=== PATIENT | female | born 1935 | race Caucasian/White ===

== ENCOUNTER 2020-08-22 12:59 | Outpatient (CLI) | payer MEDICARE, MEDICAID ==
--- NOTE | 2020-08-22 16:19 | CT ---
CT ABDOMEN AND PELVIS WITH CONTRAST: 08/22/[address] of the abdomen and pelvis was done with IV contrast for evaluation of low abdominal pain. The lung bases are clear except for some minimal areas of scarring. A small hiatal hernia was noted. The liver and spleen contain multiple calcified granulomas. There has been a prior cholecystectomy. T he pancreas and adrenal glands were unremarkable. A small cyst is seen associated with the right kidn ey measuring about 1.8 cm in size. No solid mass or hydronephrosis was seen. The aorta is normal in c aliber. There is a moderate amount of fecal material in the bowel but no overt obstruction. No inflammatory c hanges were seen around bowel, nor was there any wall thickening. Diverticulosis was present, predomi nantly in the left colon, but there was no sign of diverticulitis. CT of the pelvis shows no free air or free fluid. No adnexal masses were seen. Degenerative changes i n the lumbar spine are quite prominent. IMPRESSION: 1. Mild constipation. 2. No signs of inflammatory changes in the abdomen or associated bowel. 3. Small hiatal hernia. POS: HOME
[2020-08-22] MEDS ORDERED: Iopamidol 370 76% 100 ML VIAL ONE (16:28)
== END 2020-08-22 13:00 | disposition home or self-care (01) ==
LOC: BURCT 12:59
PROVIDERS: ATTEND Internal Medicine Gastroenterology
DX: Z01.818 Encounter for other preprocedural examination (principal); R10.30 Lower abdominal pain, unspecified; R13.12 Dysphagia, oropharyngeal phase; K58.9 Irritable bowel syndrome, unspecified; R63.5 Abnormal weight gain; K59.00 Constipation, unspecified; K44.9 Diaphragmatic hernia without obstruction or gangrene
CPT/HCPCS: 36415; 74177; 82565; Q9967

== ENCOUNTER 2020-11-18 12:36 | Emergency (ER) | payer MEDICARE, MEDICAID ==
[2020-11-18] MEDS ORDERED: ALPRAZolam 0.5 MG TAB ONE (13:05)
== END 2020-11-18 13:18 | disposition home or self-care (01) ==
LOC: BURERS 12:36
DX: F41.9 Anxiety disorder, unspecified (principal); I13.0 Hypertensive heart and chronic kidney disease with heart failure and stage 1 through stage 4 chronic kidney disease, or unspecified chronic kidney disease; I50.9 Heart failure, unspecified; N18.31 Chronic kidney disease, stage 3a; J44.9 Chronic obstructive pulmonary disease, unspecified; Z87.891 Personal history of nicotine dependence; Z79.82 Long term (current) use of aspirin; Z79.899 Other long term (current) drug therapy
CPT/HCPCS: 99283

== ENCOUNTER 2020-12-28 01:19 | Emergency (ER) | payer MEDICARE, MEDICAID ==
[2020-12-28 02:15] LABS: #Basophils 0.2 thou/uL (0.0-0.2); #Eosinphils 0.3 thou/uL (0.0-0.7); #Lymphocytes 1.4 thou/uL (1.20-3.40); #Monocytes 0.8 thou/uL (0.11-0.59); #Neutrophils 4.8 thou/uL (1.40-6.50); %Basophils 2.1 % (0.0-1.0); %Eosinophils 3.7 % (0.0-10.0); %Lymphocytes 19.3 % (21.0-51.0); %Monocytes 10.1 % (0.0-10.0); %Neutrophils 64.7 % (42.0-75.0); Hemoglobin 13.1 g/dL (12.0-16.0); Mean Corpuscular HGB CONC 32.7 g/dL (32.0-36.0); Mean Corpuscular Hemoglobin 29.8 pg (27.0-31.0); Mean Corpuscular Volume 91.3 fL (78.0-98.0); Mean Platelet Volume 9.5 fL (7.4-10.4); Platelet Count 321 thou/uL (130-400); RBC Distribution Width 12.5 % (11.5-14.5); Red Blood Cell (RBC) Count 4.41 mill/uL (4.20-5.40); White Blood Cell (WBC) Count 7.3 thou/uL (4.8-10.8)
[2020-12-28 02:29] LABS: ALT (SGPT) 13 U/L (8-55); AST (SGOT) 12 U/L (5-34); Albumin 3.8 g/dL (3.4-4.8); Alkaline Phosphatase 80 U/L (40-110); Anion Gap 13 mmol/L (10-20); BUN (Urea Nitrogen) 9 mg/dL (9.8-20.1); Bilirubin, Total 0.3 mg/dL (0.2-1.2); Calc. Creatinine Clearance 0 mL/min (70-130); Calcium 9.3 mg/dL (7.8-10.44); Carbon Dioxide 26 mmol/L (23-31); Chloride 101 mmol/L (98-107); Glucose 105 mg/dL (83-110); Potassium 4.3 mmol/L (3.5-5.1); Protein, Total 7.8 g/dL (5.8-8.1); Sodium 136 mmol/L (136-145)
[2020-12-28 02:39] LABS: Bilirubin Negative (Negative); Blood, Urine Negative (Negative); Clarity Clear (Clear); Glucose, Urine (Dipstick) Negative (Negative); Ketone, Urine Negative (Negative); Leukocyte Trace (Negative); Nitrite Negative (Negative); Protein, Urine (Dipstick) Negative (Neg-Trace); Specific Gravity, Urine 1.015 (1.005-1.030); Urobilinogen 0.2 mg/dL (Less than 2); pH, Urine 8.5 (5.0-9.0)
[2020-12-28 02:41] LABS: Bacteria/HPF Rare-Few HPF (None Seen); RBC/HPF None Seen HPF (0-3); Squamous Epithelial 0-3 HPF (0-3); WBC/HPF 0-3 HPF (0-3)
[2020-12-28] MEDS ORDERED: Acetaminophen 325 MG TAB ONE (07:25)
== END 2020-12-28 07:40 | disposition home or self-care (01) ==
LOC: BURERS 01:19
DX: F32.9 Major depressive disorder, single episode, unspecified (principal); J44.9 Chronic obstructive pulmonary disease, unspecified; I11.0 Hypertensive heart disease with heart failure; I50.9 Heart failure, unspecified; Z87.891 Personal history of nicotine dependence; Z79.899 Other long term (current) drug therapy; Z79.82 Long term (current) use of aspirin
CPT/HCPCS: 36415; 80053; 81003; 81015; 84443; 84484; 85025; 93005

== ENCOUNTER 2021-01-08 14:33 | Outpatient (CLI) | payer MEDICARE, MEDICAID | END 2021-01-08 14:34 | disposition home or self-care (01) | LOC: BURRAD 14:33 | PROVIDERS: ATTEND Family Medicine | DX: W19.XXXA Unspecified fall, initial encounter (principal) ==

== ENCOUNTER 2021-01-15 18:24 | Emergency (ER) | payer MEDICARE ==
[2021-01-15 19:52] LABS: Bilirubin Negative (Negative); Blood, Urine Negative (Negative); Clarity Clear (Clear); Glucose, Urine (Dipstick) Negative (Negative); Ketone, Urine Negative (Negative); Leukocyte Trace (Negative); Nitrite Negative (Negative); Protein, Urine (Dipstick) 30 mg/dL (Neg-Trace); Urobilinogen 0.2 mg/dL (Less than 2)
[2021-01-15 20:04] LABS: #Basophils 0.2 thou/uL (0.0-0.2); #Eosinphils 0.5 thou/uL (0.0-0.7); #Lymphocytes 1.8 thou/uL (1.20-3.40); #Monocytes 0.8 thou/uL (0.11-0.59); #Neutrophils 4.8 thou/uL (1.40-6.50); %Basophils 1.9 % (0.0-1.0); %Lymphocytes 22.6 % (21.0-51.0); %Monocytes 9.8 % (0.0-10.0); %Neutrophils 59.7 % (42.0-75.0); Hemoglobin 14.2 g/dL (12.0-16.0); Mean Corpuscular HGB CONC 32.1 g/dL (32.0-36.0); Mean Corpuscular Hemoglobin 29.3 pg (27.0-31.0); Mean Corpuscular Volume 91.1 fL (78.0-98.0); Mean Platelet Volume 8.8 fL (7.4-10.4); Platelet Count 327 thou/uL (130-400); RBC Distribution Width 12.7 % (11.5-14.5); Red Blood Cell (RBC) Count 4.85 mill/uL (4.20-5.40)
[2021-01-15 20:06] LABS: RBC/HPF None Seen HPF (0-3)
[2021-01-15 20:07] LABS: Bacteria/HPF Rare-Few HPF (None Seen); Squamous Epithelial 0-3 HPF (0-3); WBC/HPF 0-3 HPF (0-3)
[2021-01-15 20:09] LABS: ALT (SGPT) 14 U/L (8-55); AST (SGOT) 15 U/L (5-34); Albumin 4.1 g/dL (3.4-4.8); Alkaline Phosphatase 87 U/L (40-110); Anion Gap 15 mmol/L (10-20); BUN (Urea Nitrogen) 16 mg/dL (9.8-20.1); Bilirubin, Total 0.4 mg/dL (0.2-1.2); Calc. Creatinine Clearance 0 mL/min (70-130); Calcium 9.8 mg/dL (7.8-10.44); Carbon Dioxide 24 mmol/L (23-31); Chloride 102 mmol/L (98-107); Globulin 4.4 g/dL (2.4-3.5); Glucose 104 mg/dL (83-110); Lipase 50 U/L (8-78); Potassium 4.2 mmol/L (3.5-5.1); Protein, Total 8.5 g/dL (5.8-8.1); Sodium 137 mmol/L (136-145)
== END 2021-01-15 21:55 | disposition home or self-care (01) ==
LOC: BURERS 18:24
DX: F43.9 Reaction to severe stress, unspecified (principal); M25.561 Pain in right knee; I13.0 Hypertensive heart and chronic kidney disease with heart failure and stage 1 through stage 4 chronic kidney disease, or unspecified chronic kidney disease; N18.30 Chronic kidney disease, stage 3 unspecified; I50.9 Heart failure, unspecified; J44.9 Chronic obstructive pulmonary disease, unspecified; Z87.891 Personal history of nicotine dependence; Z79.899 Other long term (current) drug therapy; Z79.82 Long term (current) use of aspirin
CPT/HCPCS: 36415; 80053; 81003; 81015; 83690; 85025; 87077; 87086; 87186

== ENCOUNTER 2021-07-30 23:02 | Emergency (ER) | payer MEDICARE, MEDICAID | END 2021-07-31 00:19 | disposition home or self-care (01) | LOC: BURERS 23:02 | DX: T17.928A Food in respiratory tract, part unspecified causing other injury, initial encounter (principal); B35.6 Tinea cruris; I13.0 Hypertensive heart and chronic kidney disease with heart failure and stage 1 through stage 4 chronic kidney disease, or unspecified chronic kidney disease; I50.9 Heart failure, unspecified; N18.30 Chronic kidney disease, stage 3 unspecified; J44.9 Chronic obstructive pulmonary disease, unspecified; Z87.891 Personal history of nicotine dependence | CPT/HCPCS: 71045 ==

== ENCOUNTER 2021-09-07 15:16 | Emergency (ER) | payer MEDICARE, MEDICAID ==
[2021-09-07] MEDS ORDERED: Boostrix 0.5 ML (Tdap) VIAL IM ONE (15:17)
[2021-09-07 15:45] LABS: #Basophils 0.1 thou/uL (0.0-0.2); #Eosinphils 0.2 thou/uL (0.0-0.7); #Lymphocytes 1.3 thou/uL (1.20-3.40); #Monocytes 0.7 thou/uL (0.11-0.59); #Neutrophils 5.4 thou/uL (1.40-6.50); %Eosinophils 2.3 % (0.0-10.0); %Lymphocytes 17.3 % (21.0-51.0); %Monocytes 9.5 % (0.0-10.0); %Neutrophils 69.9 % (42.0-75.0); Hemoglobin 12.7 g/dL (12.0-16.0); Mean Corpuscular Hemoglobin 29.7 pg (27.0-31.0); Mean Corpuscular Volume 93.1 fL (78.0-98.0); Mean Platelet Volume 8.5 fL (7.4-10.4); Platelet Count 333 thou/uL (130-400); RBC Distribution Width 12.9 % (11.5-14.5); Red Blood Cell (RBC) Count 4.28 mill/uL (4.20-5.40); White Blood Cell (WBC) Count 7.7 thou/uL (4.8-10.8)
[2021-09-07 16:03] LABS: ALT (SGPT) 19 U/L (8-55); AST (SGOT) 19 U/L (5-34); Albumin 3.7 g/dL (3.4-4.8); Alkaline Phosphatase 70 U/L (40-110); Anion Gap 13 mmol/L (10-20); BUN (Urea Nitrogen) 15 mg/dL (9.8-20.1); Bilirubin, Total 0.6 mg/dL (0.2-1.2); Calc. Creatinine Clearance 0 mL/min (70-130); Carbon Dioxide 30 mmol/L (23-31); Chloride 97 mmol/L (98-107); Globulin 4.1 g/dL (2.4-3.5); Glucose 92 mg/dL (83-110); Potassium 4.1 mmol/L (3.5-5.1); Protein, Total 7.8 g/dL (5.8-8.1); Sodium 136 mmol/L (136-145)
[2021-09-07 16:23] LABS: Bilirubin Negative (Negative); Blood, Urine Negative (Negative); Clarity Clear (Clear); Glucose, Urine (Dipstick) Negative (Negative); Ketone, Urine Negative (Negative); Leukocyte Negative (Negative); Nitrite Negative (Negative); Protein, Urine (Dipstick) Negative (Neg-Trace); Specific Gravity, Urine 1.015 (1.005-1.030); Urobilinogen 0.2 mg/dL (Less than 2); pH, Urine 7.5 (5.0-9.0)
[2021-09-07] MEDS ORDERED: TETANUS, DIPHTHERIA TOX,ADULT (TDVAX) 0.5 ML VIAL IM ONE (16:33)
== END 2021-09-07 16:47 | disposition home or self-care (01) ==
LOC: BURERS 15:16
DX: S51.811A Laceration without foreign body of right forearm, initial encounter (principal); S53.401A Unspecified sprain of right elbow, initial encounter; B37.0 Candidal stomatitis; Z87.891 Personal history of nicotine dependence; I10 Essential (primary) hypertension; J44.9 Chronic obstructive pulmonary disease, unspecified; W18.30XA Fall on same level, unspecified, initial encounter
CPT/HCPCS: 80053; 81003; 84484; 85025; 90471; 90714; 90715; 93005

== ENCOUNTER → 2021-09-09 | Emergency (ER) | payer MEDICARE, MEDICAID ==
[~2021-09-09] MED LIST: traMADol HCl 50 MG TAB ONE
[2021-09-09 03:37] LABS: #Basophils 0.1 thou/uL (0.0-0.2); #Eosinphils 0.2 thou/uL (0.0-0.7); #Lymphocytes 1.8 thou/uL (1.20-3.40); #Monocytes 0.8 thou/uL (0.11-0.59); #Neutrophils 5.7 thou/uL (1.40-6.50); %Basophils 1.1 % (0.0-1.0); %Eosinophils 2.4 % (0.0-10.0); %Lymphocytes 20.8 % (21.0-51.0); %Monocytes 9.6 % (0.0-10.0); %Neutrophils 66.1 % (42.0-75.0); Mean Corpuscular HGB CONC 33.7 g/dL (32.0-36.0); Mean Corpuscular Hemoglobin 30.3 pg (27.0-31.0); Mean Corpuscular Volume 89.9 fL (78.0-98.0); Platelet Count 344 thou/uL (130-400); RBC Distribution Width 12.6 % (11.5-14.5); Red Blood Cell (RBC) Count 4.27 mill/uL (4.20-5.40); White Blood Cell (WBC) Count 8.6 thou/uL (4.8-10.8)
[2021-09-09 03:43] LABS: INR-International Normal Ratio 0.9; Prothrombin Time 12.4 sec (12.0-14.7)
[2021-09-09 03:51] LABS: ALT (SGPT) 17 U/L (8-55); AST (SGOT) 16 U/L (5-34); Albumin 3.7 g/dL (3.4-4.8); Alkaline Phosphatase 84 U/L (40-110); Anion Gap 13 mmol/L (10-20); BUN (Urea Nitrogen) 25 mg/dL (9.8-20.1); Bilirubin, Total 0.2 mg/dL (0.2-1.2); Calc. Creatinine Clearance 0 mL/min (70-130); Calcium 9.8 mg/dL (7.8-10.44); Carbon Dioxide 30 mmol/L (23-31); Chloride 97 mmol/L (98-107); Globulin 4.1 g/dL (2.4-3.5); Glucose 98 mg/dL (83-110); Potassium 4.2 mmol/L (3.5-5.1); Protein, Total 7.8 g/dL (5.8-8.1); Sodium 136 mmol/L (136-145)
== END ==
LOC: BURERS 02:21
DX: S20.212A Contusion of left front wall of thorax, initial encounter (principal); I13.0 Hypertensive heart and chronic kidney disease with heart failure and stage 1 through stage 4 chronic kidney disease, or unspecified chronic kidney disease; I50.9 Heart failure, unspecified; N18.30 Chronic kidney disease, stage 3 unspecified; E66.9 Obesity, unspecified; J44.9 Chronic obstructive pulmonary disease, unspecified; Z87.891 Personal history of nicotine dependence
CPT/HCPCS: 36415; 71250; 80053; 84484; 85025; 85610; 93005

== ENCOUNTER 2022-02-02 20:37 | Observation (INO) | payer MEDICARE, MEDICAID ==
[2022-02-02] MEDS ORDERED: Ondansetron PF 4 MG/2 ML Vial ONE (22:25)
[2022-02-02 22:28] LABS: #Basophils 0.1 thou/uL (0.0-0.2); #Eosinphils 0.2 thou/uL (0.0-0.7); #Lymphocytes 1.5 thou/uL (1.20-3.40); #Monocytes 1.1 thou/uL (0.11-0.59); #Neutrophils 12.3 thou/uL (1.40-6.50); %Basophils 0.5 % (0.0-1.0); %Eosinophils 1.6 % (0.0-10.0); %Lymphocytes 9.8 % (21.0-51.0); %Monocytes 7.4 % (0.0-10.0); %Neutrophils 80.7 % (42.0-75.0); Hemoglobin 13.8 g/dL (12.0-16.0); Mean Corpuscular HGB CONC 33.1 g/dL (32.0-36.0); Mean Corpuscular Hemoglobin 30.1 pg (27.0-31.0); Mean Corpuscular Volume 91.1 fL (78.0-98.0); Mean Platelet Volume 10.1 fL (7.4-10.4); Platelet Count 277 thou/uL (130-400); RBC Distribution Width 13.4 % (11.5-14.5); Red Blood Cell (RBC) Count 4.58 mill/uL (4.20-5.40); White Blood Cell (WBC) Count 15.2 thou/uL (4.8-10.8)
[2022-02-02 22:42] LABS: ALT (SGPT) 16 U/L (8-55); AST (SGOT) 18 U/L (5-34); Albumin 3.6 g/dL (3.4-4.8); Alkaline Phosphatase 81 U/L (40-110); Anion Gap 15 mmol/L (10-20); BUN (Urea Nitrogen) 11 mg/dL (9.8-20.1); Bilirubin, Total 0.5 mg/dL (0.2-1.2); Calc. Creatinine Clearance 0 mL/min (70-130); Calcium 8.9 mg/dL (7.8-10.44); Carbon Dioxide 25 mmol/L (23-31); Chloride 104 mmol/L (98-107); Globulin 4.3 g/dL (2.4-3.5); Glucose 114 mg/dL (83-110); Lipase 6 U/L (8-78); Potassium 4.4 mmol/L (3.5-5.1); Protein, Total 7.9 g/dL (5.8-8.1); Sodium 140 mmol/L (136-145)
[2022-02-03 00:04] VITALS: BMI 49.8
[2022-02-03] MEDS ORDERED: ALPRAZolam 0.5 MG TAB PO PRN (00:22)
[2022-02-03] MEDS ORDERED: Ondansetron ODT 4 MG TAB SL PRN (00:30)
[2022-02-03] MEDS ORDERED: Ondansetron PF 4 MG/2 ML Vial IVP PRN (00:30)
[2022-02-03] MEDS: Sodium Chloride 0.9% 1,000 ML IV SCH ×2 (01:21→09:28)
[2022-02-03] MEDS ORDERED: traMADol HCl 50 MG TAB PO PRN (07:08)
[2022-02-03] MEDS ORDERED: Ondansetron ODT 4 MG TAB PO PRN (07:08)
[2022-02-03] MEDS ORDERED: Non-Formulary Item 1 EACH (Ventolin Hfa Inhaler [Ventolin Hfa Inhaler] 60 PUFF Aer) INH PRN (07:08)
[2022-02-03] MEDS ORDERED: BISMUTH SUBSALICYLATE PO PRN (07:08)
[2022-02-03] MEDS ORDERED: Cyanocobalamin (Vitamin B-12) 1,000 MCG TAB PO SCH (07:15)
[2022-02-03] MEDS ORDERED: Artificial Tear Sol 15 ML BOT EA EYE PRN (07:33)
[2022-02-03 07:52] LABS: #Basophils 0.1 thou/uL (0.0-0.2); #Eosinphils 0.2 thou/uL (0.0-0.7); #Lymphocytes 1.8 thou/uL (1.20-3.40); #Monocytes 0.7 thou/uL (0.11-0.59); #Neutrophils 4.9 thou/uL (1.40-6.50); %Basophils 0.9 % (0.0-1.0); %Lymphocytes 23.6 % (21.0-51.0); %Monocytes 8.9 % (0.0-10.0); %Neutrophils 63.7 % (42.0-75.0); Hemoglobin 12.8 g/dL (12.0-16.0); Mean Corpuscular Hemoglobin 29.9 pg (27.0-31.0); Mean Corpuscular Volume 90.6 fL (78.0-98.0); Mean Platelet Volume 9.3 fL (7.4-10.4); Platelet Count 262 thou/uL (130-400); RBC Distribution Width 13.7 % (11.5-14.5); Red Blood Cell (RBC) Count 4.28 mill/uL (4.20-5.40); White Blood Cell (WBC) Count 7.7 thou/uL (4.8-10.8)
[2022-02-03 08:08] LABS: ALT (SGPT) 9 U/L (8-55); AST (SGOT) 15 U/L (5-34); Albumin 3.2 g/dL (3.4-4.8); Alkaline Phosphatase 72 U/L (40-110); Anion Gap 12 mmol/L (10-20); BUN (Urea Nitrogen) 9 mg/dL (9.8-20.1); Bilirubin, Total 0.6 mg/dL (0.2-1.2); Calc. Creatinine Clearance 91 mL/min (70-130); Calcium 8.5 mg/dL (7.8-10.44); Carbon Dioxide 25 mmol/L (23-31); Chloride 107 mmol/L (98-107); Globulin 3.8 g/dL (2.4-3.5); Glucose 90 mg/dL (83-110); Potassium 3.9 mmol/L (3.5-5.1); Sodium 140 mmol/L (136-145)
[2022-02-03] MEDS ORDERED: ALPRAZolam 0.5 MG TAB PO SCH ×3 (09:00)
[2022-02-03] MEDS: Fluticasone Propionate Nasal Spray 16 gm Bottle NASAL SCH (09:03)
[2022-02-03] MEDS: Bupropion 150 MG XL TAB PO SCH (09:04)
[2022-02-03] MEDS: CeleCOXIB 100 MG CAP PO SCH (09:04)
[2022-02-03] MEDS: Furosemide 40 MG TAB PO SCH (09:06)
[2022-02-03] MEDS: Calcium Carbonate + Vit D 500 MG TAB PO SCH ×2 (09:08→20:25)
[2022-02-03] MEDS: Famotidine 20 MG TAB PO SCH ×2 (09:09→20:23)
[2022-02-03] MEDS: Multivit, Therapeutic 1 TAB PO SCH (09:09)
[2022-02-03] MEDS: Carvedilol 6.25 MG TAB PO SCH ×2 (09:11→20:23)
[2022-02-03] MEDS: Lisinopril 5 MG TAB PO SCH (09:15)
[2022-02-03] MEDS: Enoxaparin Sodium 40 MG/0.4 ML SYRINGE SC SCH (09:28)
[2022-02-03] MEDS: Mometasone/Formoterol 60 PUFF AER INH SCH ×2 (09:29→20:26)
[2022-02-03 11:40] LABS: Bilirubin Negative (Negative); Blood, Urine Negative (Negative); Clarity Slightly Cloudy (Clear); Glucose, Urine (Dipstick) Negative (Negative); Ketone, Urine Negative (Negative); Leukocyte Large (Negative); Nitrite Negative (Negative); Protein, Urine (Dipstick) Negative (Neg-Trace); Specific Gravity, Urine 1.015 (1.005-1.030); Urobilinogen 0.2 mg/dL (Less than 2); pH, Urine 7.5 (5.0-9.0)
[2022-02-03] MEDS: Hyoscyamine Sulfate SL 0.125 mg Tablet SL SCH ×3 (12:14→22:20)
[2022-02-03 14:03] LABS: SARS-CoV-2 NAA Rapid Test Not Detected (NotDetected)
[2022-02-03 14:37] LABS: RBC/HPF 0-3 HPF (0-3); Squamous Epithelial 0-3 HPF (0-3)
[2022-02-03 14:38] LABS: Bacteria/HPF 1+ HPF (None Seen); Urine Culture Reflex Yes Yes
[2022-02-03] MEDS: Nitrofurantoin Monohyd/M-Cryst 100 MG CAP PO SCH (20:23)
[2022-02-03] MEDS: Nystatin Powder 15 GM BOT TOP SCH (20:25)
[2022-02-03] MEDS ORDERED: clonazePAM 0.5 MG TAB PO SCH (21:00)
[2022-02-03] MEDS ORDERED: Aspirin 81 mg Enteric Coated Tablet PO SCH (21:00)
[2022-02-04] MEDS ORDERED: Levothyroxine Sodium 100 MCG TAB PO SCH (06:00)
[2022-02-04] MEDS: Hyoscyamine Sulfate SL 0.125 mg Tablet SL SCH ×2 (07:25→11:39)
[2022-02-04] MEDS: Bupropion 150 MG XL TAB PO SCH (09:25)
[2022-02-04] MEDS: Furosemide 40 MG TAB PO SCH (09:25)
[2022-02-04] MEDS: Famotidine 20 MG TAB PO SCH (09:25)
[2022-02-04] MEDS: CeleCOXIB 100 MG CAP PO SCH (09:26)
[2022-02-04] MEDS: Nitrofurantoin Monohyd/M-Cryst 100 MG CAP PO SCH (09:28)
[2022-02-04] MEDS: Calcium Carbonate + Vit D 500 MG TAB PO SCH (09:28)
[2022-02-04] MEDS: Carvedilol 6.25 MG TAB PO SCH (09:28)
[2022-02-04] MEDS: Lisinopril 5 MG TAB PO SCH (09:29)
[2022-02-04] MEDS: Fluticasone Propionate Nasal Spray 16 gm Bottle NASAL SCH (09:29)
[2022-02-04] MEDS: Multivit, Therapeutic 1 TAB PO SCH (09:29)
[2022-02-04] MEDS: Enoxaparin Sodium 40 MG/0.4 ML SYRINGE SC SCH (09:30)
[2022-02-04] MEDS: Mometasone/Formoterol 60 PUFF AER INH SCH (09:33)
[2022-02-04] MEDS: Nystatin Powder 15 GM BOT TOP SCH (09:39)
[2022-02-04 09:42] VITALS: BP 130/75
[2022-02-04 09:56] VITALS: TEMP 98.6
== END 2022-02-04 12:47 | disposition swing bed (61) ==
LOC: BURERS 20:37 → BURMED 23:30
PROVIDERS: ADMIT Family Medicine; ATTEND Family Medicine
DX: E86.0 Dehydration (principal); R53.1 Weakness; K90.0 Celiac disease; R19.7 Diarrhea, unspecified; D72.829 Elevated white blood cell count, unspecified; I11.0 Hypertensive heart disease with heart failure; I50.32 Chronic diastolic (congestive) heart failure; J44.9 Chronic obstructive pulmonary disease, unspecified; E03.9 Hypothyroidism, unspecified; M79.7 Fibromyalgia; E66.9 Obesity, unspecified; Z68.42 Body mass index [BMI] 45.0-49.9, adult; Z87.891 Personal history of nicotine dependence; Z79.82 Long term (current) use of aspirin; Z79.890 Hormone replacement therapy; Z79.899 Other long term (current) drug therapy; Z88.0 Allergy status to penicillin; Z88.2 Allergy status to sulfonamides; Z88.5 Allergy status to narcotic agent; Z88.8 Allergy status to other drugs, medicaments and biological substances; Z91.011 Allergy to milk products; Z20.822 Contact with and (suspected) exposure to COVID-19
CPT/HCPCS: 36415; 71045; 80053; 81001; 83605; 83690; 85025; 87077; 87086; 87186; 93005; 94664; 96374; J1650; J2405; J7050; U0002

== ENCOUNTER 2022-02-04 12:49 | Inpatient (IN) | payer MEDICARE, OTHER ==
[2022-02-04 13:09] VITALS: BMI 45.2
[2022-02-04] MEDS ORDERED: BISMUTH SUBSALICYLATE PO PRN (13:52)
[2022-02-04] MEDS ORDERED: Non-Formulary Item 1 EACH (Ventolin Hfa Inhaler [Ventolin Hfa Inhaler] 60 PUFF Aer) INH PRN (13:52)
[2022-02-04] MEDS ORDERED: Artificial Tear Sol 15 ML BOT EA EYE PRN (15:59)
[2022-02-04] MEDS ORDERED: Albuterol Sulfate 2.5 mg/3 ml Neb NEB PRN (16:03)
[2022-02-04] MEDS: Hyoscyamine Sulfate SL 0.125 mg Tablet PO SCH (16:55)
[2022-02-04] MEDS: Carvedilol 6.25 MG TAB PO SCH (16:56)
[2022-02-04] MEDS ORDERED: Non-Formulary Item 1 EACH (Ranitidine Hcl [Ranitidine Hcl] 150 MG Tablet) PO SCH (21:00)
[2022-02-04] MEDS: Aspirin 81 mg Enteric Coated Tablet PO SCH (21:55)
[2022-02-04] MEDS: Calcium Carbonate + Vit D 500 MG TAB PO SCH (21:56)
[2022-02-04] MEDS: clonazePAM 0.5 MG TAB PO SCH (21:56)
[2022-02-04] MEDS: Nitrofurantoin Monohyd/M-Cryst 100 MG CAP PO SCH (21:56)
[2022-02-04] MEDS: Mometasone/Formoterol 60 PUFF AER INH SCH (21:56)
[2022-02-04] MEDS: ALPRAZolam 0.5 MG TAB PO SCH (21:56)
[2022-02-04] MEDS: Nystatin Powder 15 GM BOT TOP SCH (22:00)
[2022-02-05] MEDS: Hyoscyamine Sulfate SL 0.125 mg Tablet PO SCH ×4 (04:12→17:13)
[2022-02-05] MEDS: Levothyroxine Sodium 100 MCG TAB PO SCH (06:09)
[2022-02-05] MEDS: Nitrofurantoin Monohyd/M-Cryst 100 MG CAP PO SCH ×2 (10:11→20:20)
[2022-02-05] MEDS: Lisinopril 5 MG TAB PO SCH (10:11)
[2022-02-05] MEDS: Bupropion 150 MG XL TAB PO SCH (10:12)
[2022-02-05] MEDS: Calcium Carbonate + Vit D 500 MG TAB PO SCH ×2 (10:12→20:21)
[2022-02-05] MEDS: ALPRAZolam 0.5 MG TAB PO SCH ×2 (10:12→20:20)
[2022-02-05] MEDS: Cyanocobalamin (Vitamin B-12) 1,000 MCG TAB PO SCH (10:12)
[2022-02-05] MEDS: Furosemide 40 MG TAB PO SCH (10:12)
[2022-02-05] MEDS: CeleCOXIB 100 MG CAP PO SCH (10:12)
[2022-02-05] MEDS: Carvedilol 6.25 MG TAB PO SCH ×2 (10:12→17:12)
[2022-02-05] MEDS: Multivitamin W/ Minerals 1 TAB PO SCH (10:13)
[2022-02-05] MEDS: Enoxaparin Sodium 40 MG/0.4 ML SYRINGE SC SCH (10:13)
[2022-02-05] MEDS: Mometasone/Formoterol 60 PUFF AER INH SCH ×2 (10:14→20:22)
[2022-02-05] MEDS: Nystatin Powder 15 GM BOT TOP SCH ×2 (10:15→20:24)
[2022-02-05] MEDS: Fluticasone Propionate Nasal Spray 16 gm Bottle NASAL SCH (10:42)
[2022-02-05] MEDS: clonazePAM 0.5 MG TAB PO SCH (20:20)
[2022-02-05] MEDS: Aspirin 81 mg Enteric Coated Tablet PO SCH (20:20)
[2022-02-06] MEDS: Hyoscyamine Sulfate SL 0.125 mg Tablet PO SCH ×4 (00:19→17:03)
[2022-02-06] MEDS: traMADol HCl 50 MG TAB PO PRN ×2 (00:21→17:19)
[2022-02-06] MEDS: Levothyroxine Sodium 100 MCG TAB PO SCH (05:42)
[2022-02-06] MEDS: Furosemide 40 MG TAB PO SCH (08:50)
[2022-02-06] MEDS: CeleCOXIB 100 MG CAP PO SCH (08:50)
[2022-02-06] MEDS: Calcium Carbonate + Vit D 500 MG TAB PO SCH ×2 (08:50→20:33)
[2022-02-06] MEDS: Cyanocobalamin (Vitamin B-12) 1,000 MCG TAB PO SCH (08:51)
[2022-02-06] MEDS: Multivitamin W/ Minerals 1 TAB PO SCH (08:51)
[2022-02-06] MEDS: Nitrofurantoin Monohyd/M-Cryst 100 MG CAP PO SCH ×2 (08:51→20:33)
[2022-02-06] MEDS: ALPRAZolam 0.5 MG TAB PO SCH ×2 (08:51→20:32)
[2022-02-06] MEDS: Carvedilol 6.25 MG TAB PO SCH ×2 (08:52→17:03)
[2022-02-06] MEDS: Lisinopril 5 MG TAB PO SCH (08:52)
[2022-02-06] MEDS: Enoxaparin Sodium 40 MG/0.4 ML SYRINGE SC SCH (08:53)
[2022-02-06] MEDS: Bupropion 150 MG XL TAB PO SCH (08:53)
[2022-02-06] MEDS: Fluticasone Propionate Nasal Spray 16 gm Bottle NASAL SCH (08:55)
[2022-02-06] MEDS: Mometasone/Formoterol 60 PUFF AER INH SCH ×2 (08:56→21:00)
[2022-02-06] MEDS: Nystatin Powder 15 GM BOT TOP SCH ×2 (09:06→21:00)
[2022-02-06] MEDS: Ondansetron ODT 4 MG TAB PO PRN (19:02)
[2022-02-06] MEDS: Aspirin 81 mg Enteric Coated Tablet PO SCH (20:33)
[2022-02-06] MEDS: clonazePAM 0.5 MG TAB PO SCH (20:33)
[2022-02-07] MEDS: Hyoscyamine Sulfate SL 0.125 mg Tablet PO SCH ×5 (00:52→23:41)
[2022-02-07] MEDS: traMADol HCl 50 MG TAB PO PRN ×3 (00:52→23:42)
[2022-02-07] MEDS: Levothyroxine Sodium 100 MCG TAB PO SCH (06:08)
[2022-02-07] MEDS: Enoxaparin Sodium 40 MG/0.4 ML SYRINGE SC SCH (09:00)
[2022-02-07] MEDS: CeleCOXIB 100 MG CAP PO SCH (09:01)
[2022-02-07] MEDS: Nitrofurantoin Monohyd/M-Cryst 100 MG CAP PO SCH ×2 (09:02→21:14)
[2022-02-07] MEDS: ALPRAZolam 0.5 MG TAB PO SCH ×2 (09:02→21:15)
[2022-02-07] MEDS: Bupropion 150 MG XL TAB PO SCH (09:02)
[2022-02-07] MEDS: Carvedilol 6.25 MG TAB PO SCH ×2 (09:02→17:07)
[2022-02-07] MEDS: Cyanocobalamin (Vitamin B-12) 1,000 MCG TAB PO SCH (09:03)
[2022-02-07] MEDS: Calcium Carbonate + Vit D 500 MG TAB PO SCH ×2 (09:03→21:14)
[2022-02-07] MEDS: Furosemide 40 MG TAB PO SCH (09:03)
[2022-02-07] MEDS: Multivitamin W/ Minerals 1 TAB PO SCH (09:03)
[2022-02-07] MEDS: Fluticasone Propionate Nasal Spray 16 gm Bottle NASAL SCH (09:03)
[2022-02-07] MEDS: Lisinopril 5 MG TAB PO SCH (09:03)
[2022-02-07] MEDS: Mometasone/Formoterol 60 PUFF AER INH SCH ×2 (09:08→21:15)
[2022-02-07] MEDS: Nystatin Powder 15 GM BOT TOP SCH ×2 (09:11→21:18)
[2022-02-07] MEDS: clonazePAM 0.5 MG TAB PO SCH (21:14)
[2022-02-07] MEDS: Aspirin 81 mg Enteric Coated Tablet PO SCH (21:15)
[2022-02-08] MEDS: Hyoscyamine Sulfate SL 0.125 mg Tablet PO SCH ×4 (05:46→23:58)
[2022-02-08] MEDS: Levothyroxine Sodium 100 MCG TAB PO SCH (05:46)
[2022-02-08] MEDS: Fluticasone Propionate Nasal Spray 16 gm Bottle NASAL SCH (08:40)
[2022-02-08] MEDS: Mometasone/Formoterol 60 PUFF AER INH SCH ×2 (08:41→20:15)
[2022-02-08] MEDS: Nitrofurantoin Monohyd/M-Cryst 100 MG CAP PO SCH ×2 (08:44→20:15)
[2022-02-08] MEDS: Bupropion 150 MG XL TAB PO SCH (08:44)
[2022-02-08] MEDS: Lisinopril 5 MG TAB PO SCH (08:44)
[2022-02-08] MEDS: Cyanocobalamin (Vitamin B-12) 1,000 MCG TAB PO SCH (08:47)
[2022-02-08] MEDS: CeleCOXIB 100 MG CAP PO SCH (08:47)
[2022-02-08] MEDS: Multivitamin W/ Minerals 1 TAB PO SCH (08:48)
[2022-02-08] MEDS: ALPRAZolam 0.5 MG TAB PO SCH ×2 (08:48→20:15)
[2022-02-08] MEDS: Calcium Carbonate + Vit D 500 MG TAB PO SCH ×2 (08:48→20:15)
[2022-02-08] MEDS: Furosemide 40 MG TAB PO SCH (08:48)
[2022-02-08] MEDS: Carvedilol 6.25 MG TAB PO SCH ×2 (08:49→17:09)
[2022-02-08] MEDS: Enoxaparin Sodium 40 MG/0.4 ML SYRINGE SC SCH (08:49)
[2022-02-08] MEDS: Nystatin Powder 15 GM BOT TOP SCH ×2 (08:49→21:01)
[2022-02-08] MEDS: traMADol HCl 50 MG TAB PO PRN ×2 (09:01→20:52)
[2022-02-08] MEDS: Acetaminophen 500 MG TAB PO PRN (14:30)
[2022-02-08] MEDS: Aspirin 81 mg Enteric Coated Tablet PO SCH (20:15)
[2022-02-08] MEDS: clonazePAM 0.5 MG TAB PO SCH (20:15)
[2022-02-09] MEDS: Acetaminophen 500 MG TAB PO PRN
[2022-02-09] MEDS: Levothyroxine Sodium 100 MCG TAB PO SCH (05:05)
[2022-02-09] MEDS: Hyoscyamine Sulfate SL 0.125 mg Tablet PO SCH ×3 (05:05→17:20)
[2022-02-09] MEDS: Nystatin Powder 15 GM BOT TOP SCH ×2 (09:14→21:49)
[2022-02-09] MEDS: Lisinopril 5 MG TAB PO SCH (09:14)
[2022-02-09] MEDS: Enoxaparin Sodium 40 MG/0.4 ML SYRINGE SC SCH (09:14)
[2022-02-09] MEDS: Multivitamin W/ Minerals 1 TAB PO SCH (09:15)
[2022-02-09] MEDS: Furosemide 40 MG TAB PO SCH (09:15)
[2022-02-09] MEDS: traMADol HCl 50 MG TAB PO PRN ×2 (09:15→21:46)
[2022-02-09] MEDS: CeleCOXIB 100 MG CAP PO SCH (09:15)
[2022-02-09] MEDS: Carvedilol 6.25 MG TAB PO SCH ×2 (09:16→17:19)
[2022-02-09] MEDS: Bupropion 150 MG XL TAB PO SCH (09:16)
[2022-02-09] MEDS: ALPRAZolam 0.5 MG TAB PO SCH ×2 (09:16→21:46)
[2022-02-09] MEDS: Cyanocobalamin (Vitamin B-12) 1,000 MCG TAB PO SCH (09:16)
[2022-02-09] MEDS: Calcium Carbonate + Vit D 500 MG TAB PO SCH ×2 (09:16→21:46)
[2022-02-09] MEDS: Nitrofurantoin Monohyd/M-Cryst 100 MG CAP PO SCH ×2 (09:16→21:46)
[2022-02-09] MEDS: Mometasone/Formoterol 60 PUFF AER INH SCH ×2 (09:17→21:48)
[2022-02-09] MEDS: Fluticasone Propionate Nasal Spray 16 gm Bottle NASAL SCH (09:17)
[2022-02-09] MEDS: Ondansetron ODT 4 MG TAB PO PRN (13:08)
[2022-02-09] MEDS ORDERED: Polyethylene Glycol 3350 17 GM Packet PO SCH (14:45)
[2022-02-09] MEDS: Aspirin 81 mg Enteric Coated Tablet PO SCH (21:46)
[2022-02-09] MEDS: clonazePAM 0.5 MG TAB PO SCH (21:46)
[2022-02-10] MEDS: Hyoscyamine Sulfate SL 0.125 mg Tablet PO SCH ×5 (00:45→23:51)
[2022-02-10] MEDS: Levothyroxine Sodium 100 MCG TAB PO SCH (05:36)
[2022-02-10] MEDS: Furosemide 40 MG TAB PO SCH (08:48)
[2022-02-10] MEDS: CeleCOXIB 100 MG CAP PO SCH (08:49)
[2022-02-10] MEDS: Enoxaparin Sodium 40 MG/0.4 ML SYRINGE SC SCH (08:49)
[2022-02-10] MEDS: Polyethylene Glycol 3350 17 GM Packet PO SCH (08:50)
[2022-02-10] MEDS: Carvedilol 6.25 MG TAB PO SCH ×2 (08:50→17:07)
[2022-02-10] MEDS: Cyanocobalamin (Vitamin B-12) 1,000 MCG TAB PO SCH (08:51)
[2022-02-10] MEDS: Multivitamin W/ Minerals 1 TAB PO SCH (08:51)
[2022-02-10] MEDS: Bupropion 150 MG XL TAB PO SCH (08:51)
[2022-02-10] MEDS: Lisinopril 5 MG TAB PO SCH (08:51)
[2022-02-10] MEDS: Nitrofurantoin Monohyd/M-Cryst 100 MG CAP PO SCH ×2 (08:51→21:28)
[2022-02-10] MEDS: Calcium Carbonate + Vit D 500 MG TAB PO SCH ×2 (08:51→21:28)
[2022-02-10] MEDS: ALPRAZolam 0.5 MG TAB PO SCH ×2 (08:51→21:28)
[2022-02-10] MEDS: traMADol HCl 50 MG TAB PO PRN ×2 (08:57→23:51)
[2022-02-10] MEDS: Ondansetron ODT 4 MG TAB PO PRN (08:58)
[2022-02-10] MEDS: Mometasone/Formoterol 60 PUFF AER INH SCH ×2 (08:59→21:30)
[2022-02-10] MEDS: Fluticasone Propionate Nasal Spray 16 gm Bottle NASAL SCH (09:07)
[2022-02-10] MEDS: Nystatin Powder 15 GM BOT TOP SCH ×2 (09:08→21:31)
[2022-02-10] MEDS: Acetaminophen 500 MG TAB PO PRN (21:27)
[2022-02-10] MEDS: clonazePAM 0.5 MG TAB PO SCH (21:28)
[2022-02-10] MEDS: Aspirin 81 mg Enteric Coated Tablet PO SCH (21:29)
[2022-02-11 04:44] VITALS: TEMP 97
[2022-02-11] MEDS: Hyoscyamine Sulfate SL 0.125 mg Tablet PO SCH ×2 (05:25→13:10)
[2022-02-11] MEDS: Levothyroxine Sodium 100 MCG TAB PO SCH (05:25)
[2022-02-11 05:33] LABS: Platelet Count 230 thou/uL (130-400)
[2022-02-11] MEDS: Carvedilol 6.25 MG TAB PO SCH (09:13)
[2022-02-11] MEDS: CeleCOXIB 100 MG CAP PO SCH (09:13)
[2022-02-11] MEDS: Nitrofurantoin Monohyd/M-Cryst 100 MG CAP PO SCH (09:13)
[2022-02-11] MEDS: Multivitamin W/ Minerals 1 TAB PO SCH (09:13)
[2022-02-11] MEDS: Calcium Carbonate + Vit D 500 MG TAB PO SCH (09:14)
[2022-02-11] MEDS: Bupropion 150 MG XL TAB PO SCH (09:14)
[2022-02-11] MEDS: Cyanocobalamin (Vitamin B-12) 1,000 MCG TAB PO SCH (09:14)
[2022-02-11] MEDS: ALPRAZolam 0.5 MG TAB PO SCH (09:14)
[2022-02-11] MEDS: Lisinopril 5 MG TAB PO SCH (09:14)
[2022-02-11] MEDS: Polyethylene Glycol 3350 17 GM Packet PO SCH ×2 (09:14→09:18)
[2022-02-11] MEDS: Furosemide 40 MG TAB PO SCH (09:14)
[2022-02-11] MEDS: Enoxaparin Sodium 40 MG/0.4 ML SYRINGE SC SCH (09:14)
[2022-02-11 09:15] VITALS: BP 129/65
[2022-02-11] MEDS: Fluticasone Propionate Nasal Spray 16 gm Bottle NASAL SCH (09:15)
[2022-02-11] MEDS: Mometasone/Formoterol 60 PUFF AER INH SCH (09:15)
[2022-02-11] MEDS: Nystatin Powder 15 GM BOT TOP SCH (09:17)
== END 2022-02-11 15:20 | disposition home or self-care (01) | DRG 690 ==
LOC: BURMED 12:49
PROVIDERS: ADMIT Family Medicine; ATTEND Family Medicine
DX: N39.0 Urinary tract infection, site not specified (principal); I50.32 Chronic diastolic (congestive) heart failure; Z68.41 Body mass index [BMI] 40.0-44.9, adult; E86.0 Dehydration; R53.81 Other malaise; E66.9 Obesity, unspecified; K90.0 Celiac disease; I11.0 Hypertensive heart disease with heart failure; J44.9 Chronic obstructive pulmonary disease, unspecified; E03.9 Hypothyroidism, unspecified; F41.9 Anxiety disorder, unspecified; F32.A Depression, unspecified; M79.7 Fibromyalgia; B96.20 Unspecified Escherichia coli [E. coli] as the cause of diseases classified elsewhere
CPT/HCPCS: 36415; 82565; 85014; 85018; 85049; 94664; J1650; Q0162

== ENCOUNTER 2022-05-13 14:46 | Inpatient (IN) | payer MEDICARE, MEDICAID ==
[2022-05-13] MEDS ORDERED: traMADol HCl 50 MG TAB PO SCH (23:45)
[2022-05-14] MEDS ORDERED: Albuterol 200 PUFF (6.7GM INHALER) INH PRN ×2 (06:48)
[2022-05-14] MEDS: Enoxaparin Sodium 40 MG/0.4 ML SYRINGE SC SCH (08:54)
[2022-05-14] MEDS: FLUoxetine HCl 10 MG CAP PO SCH (08:55)
[2022-05-14] MEDS: Carvedilol 6.25 MG TAB PO SCH ×2 (08:58→22:17)
[2022-05-14] MEDS: Multivitamin W/ Minerals 1 TAB PO SCH (09:00)
[2022-05-14] MEDS: Calcium Carbonate 600 MG + Vit D TAB PO SCH ×2 (09:00→22:17)
[2022-05-14] MEDS ORDERED: Carvedilol 6.25 MG TAB PO SCH (09:00)
[2022-05-14] MEDS: DULoxetine 30 MG CAP PO SCH ×2 (09:00→22:15)
[2022-05-14] MEDS ORDERED: Multivit, Therapeutic 1 TAB PO SCH (09:00)
[2022-05-14] MEDS: ALPRAZolam 0.5 MG TAB PO SCH ×3 (09:01→22:18)
[2022-05-14] MEDS: Amlodipine 5 MG TAB PO SCH (09:01)
[2022-05-14] MEDS: Mometasone/Formoterol 60 PUFF AER INH SCH ×2 (09:09→22:18)
[2022-05-14] MEDS: Hyoscyamine Sulfate SL 0.125 mg Tablet PO SCH ×3 (09:51→22:17)
[2022-05-14] MEDS: CeleCOXIB 100 MG CAP PO SCH (22:15)
[2022-05-15] MEDS: Hyoscyamine Sulfate SL 0.125 mg Tablet PO SCH ×4 (02:22→21:28)
[2022-05-15 05:12] LABS: Hemoglobin 12.3 g/dL (12.0-16.0); Platelet Count 243 thou/uL (130-400)
[2022-05-15] MEDS: Levothyroxine Sodium 100 MCG TAB PO SCH (05:15)
[2022-05-15] MEDS: ALPRAZolam 0.5 MG TAB PO SCH ×3 (09:51→21:24)
[2022-05-15] MEDS: Enoxaparin Sodium 40 MG/0.4 ML SYRINGE SC SCH (09:51)
[2022-05-15] MEDS: Multivitamin W/ Minerals 1 TAB PO SCH (09:51)
[2022-05-15] MEDS: FLUoxetine HCl 10 MG CAP PO SCH (09:53)
[2022-05-15] MEDS: DULoxetine 30 MG CAP PO SCH ×2 (09:53→21:24)
[2022-05-15] MEDS: Amlodipine 5 MG TAB PO SCH (09:54)
[2022-05-15] MEDS: Calcium Carbonate 600 MG + Vit D TAB PO SCH ×2 (09:55→21:25)
[2022-05-15] MEDS: Carvedilol 6.25 MG TAB PO SCH ×2 (09:55→21:28)
[2022-05-15] MEDS: Mometasone/Formoterol 60 PUFF AER INH SCH ×2 (09:56→21:31)
[2022-05-15] MEDS: traMADol HCl 50 MG TAB PO PRN (12:12)
[2022-05-15] MEDS: Ondansetron ODT 4 MG TAB PO PRN (13:41)
[2022-05-15] MEDS: CeleCOXIB 100 MG CAP PO SCH (21:25)
[2022-05-16] MEDS: Hyoscyamine Sulfate SL 0.125 mg Tablet PO SCH ×4 (01:33→21:03)
[2022-05-16] MEDS: Levothyroxine Sodium 100 MCG TAB PO SCH (05:42)
[2022-05-16] MEDS: FLUoxetine HCl 10 MG CAP PO SCH (09:41)
[2022-05-16] MEDS: Multivitamin W/ Minerals 1 TAB PO SCH (09:41)
[2022-05-16] MEDS: Carvedilol 6.25 MG TAB PO SCH ×2 (09:41→21:02)
[2022-05-16] MEDS: Calcium Carbonate 600 MG + Vit D TAB PO SCH ×2 (09:42→21:03)
[2022-05-16] MEDS: Enoxaparin Sodium 40 MG/0.4 ML SYRINGE SC SCH (09:42)
[2022-05-16] MEDS: Amlodipine 5 MG TAB PO SCH (09:42)
[2022-05-16] MEDS: DULoxetine 30 MG CAP PO SCH ×2 (09:43→21:02)
[2022-05-16] MEDS: Mometasone/Formoterol 60 PUFF AER INH SCH ×2 (10:46→21:04)
[2022-05-16] MEDS: ALPRAZolam 0.5 MG TAB PO SCH ×3 (10:46→21:04)
[2022-05-16] MEDS: CeleCOXIB 100 MG CAP PO SCH (20:59)
[2022-05-16] MEDS: Acetaminophen 325 MG TAB PO PRN (21:00)
[2022-05-17] MEDS: traMADol HCl 50 MG TAB PO PRN
[2022-05-17] MEDS: Hyoscyamine Sulfate SL 0.125 mg Tablet PO SCH ×4 (01:48→21:34)
[2022-05-17] MEDS: Levothyroxine Sodium 100 MCG TAB PO SCH (05:42)
[2022-05-17] MEDS: ALPRAZolam 0.5 MG TAB PO SCH ×3 (09:53→21:35)
[2022-05-17] MEDS: Furosemide 20 MG TAB PO SCH (09:53)
[2022-05-17] MEDS: Multivitamin W/ Minerals 1 TAB PO SCH (09:53)
[2022-05-17] MEDS: DULoxetine 30 MG CAP PO SCH ×2 (09:54→21:34)
[2022-05-17] MEDS: Enoxaparin Sodium 40 MG/0.4 ML SYRINGE SC SCH (09:54)
[2022-05-17] MEDS: FLUoxetine HCl 10 MG CAP PO SCH (09:54)
[2022-05-17] MEDS: Calcium Carbonate 600 MG + Vit D TAB PO SCH ×2 (09:54→21:35)
[2022-05-17] MEDS: Carvedilol 6.25 MG TAB PO SCH ×2 (09:55→21:36)
[2022-05-17] MEDS: Amlodipine 5 MG TAB PO SCH (09:57)
[2022-05-17] MEDS: Mometasone/Formoterol 60 PUFF AER INH SCH ×2 (09:59→21:38)
[2022-05-17] MEDS: CeleCOXIB 100 MG CAP PO SCH (21:34)
[2022-05-18] MEDS: Hyoscyamine Sulfate SL 0.125 mg Tablet PO SCH ×5 (02:31→23:24)
[2022-05-18] MEDS: Levothyroxine Sodium 100 MCG TAB PO SCH (06:04)
[2022-05-18] MEDS: DULoxetine 30 MG CAP PO SCH ×2 (09:43→20:57)
[2022-05-18] MEDS: ALPRAZolam 0.5 MG TAB PO SCH ×3 (09:44→20:56)
[2022-05-18] MEDS: FLUoxetine HCl 10 MG CAP PO SCH (09:44)
[2022-05-18] MEDS: Enoxaparin Sodium 40 MG/0.4 ML SYRINGE SC SCH (09:45)
[2022-05-18] MEDS: Multivitamin W/ Minerals 1 TAB PO SCH (09:45)
[2022-05-18] MEDS: Carvedilol 6.25 MG TAB PO SCH ×2 (09:45→21:00)
[2022-05-18] MEDS: Calcium Carbonate 600 MG + Vit D TAB PO SCH ×2 (09:45→20:56)
[2022-05-18] MEDS: Furosemide 20 MG TAB PO SCH (09:45)
[2022-05-18] MEDS: Amlodipine 5 MG TAB PO SCH (09:48)
[2022-05-18] MEDS: Acetaminophen 325 MG TAB PO PRN (09:49)
[2022-05-18] MEDS: Mometasone/Formoterol 60 PUFF AER INH SCH ×2 (09:51→20:58)
[2022-05-18] MEDS ORDERED: Artificial Tear Sol 15 ML BOT EA EYE PRN (10:07)
[2022-05-18] MEDS: CeleCOXIB 100 MG CAP PO SCH (20:57)
[2022-05-19] MEDS: Acetaminophen 325 MG TAB PO PRN (01:25)
[2022-05-19] MEDS: Levothyroxine Sodium 100 MCG TAB PO SCH (05:11)
[2022-05-19] MEDS: Hyoscyamine Sulfate SL 0.125 mg Tablet PO SCH ×3 (05:11→20:04)
[2022-05-19] MEDS: ALPRAZolam 0.5 MG TAB PO SCH ×3 (10:11→20:03)
[2022-05-19] MEDS: FLUoxetine HCl 10 MG CAP PO SCH (10:11)
[2022-05-19] MEDS: Ondansetron ODT 4 MG TAB PO PRN ×2 (10:11→20:05)
[2022-05-19] MEDS: Cyanocobalamin (Vitamin B-12) 1,000 MCG TAB PO SCH (10:12)
[2022-05-19] MEDS: Furosemide 20 MG TAB PO SCH (10:12)
[2022-05-19] MEDS: Amlodipine 5 MG TAB PO SCH (10:12)
[2022-05-19] MEDS: Multivitamin W/ Minerals 1 TAB PO SCH (10:12)
[2022-05-19] MEDS: DULoxetine 30 MG CAP PO SCH ×2 (10:13→22:00)
[2022-05-19] MEDS: Carvedilol 6.25 MG TAB PO SCH ×2 (10:13→20:04)
[2022-05-19] MEDS: Enoxaparin Sodium 40 MG/0.4 ML SYRINGE SC SCH (10:14)
[2022-05-19] MEDS: Calcium Carbonate 600 MG + Vit D TAB PO SCH ×2 (10:14→20:04)
[2022-05-19] MEDS: Mometasone/Formoterol 60 PUFF AER INH SCH ×2 (10:15→20:08)
[2022-05-19] MEDS: CeleCOXIB 100 MG CAP PO SCH (20:03)
[2022-05-20] MEDS: Acetaminophen 325 MG TAB PO PRN (01:27)
[2022-05-20] MEDS: Hyoscyamine Sulfate SL 0.125 mg Tablet PO SCH ×4 (01:27→17:19)
[2022-05-20] MEDS: Levothyroxine Sodium 100 MCG TAB PO SCH (05:23)
[2022-05-20] MEDS: Enoxaparin Sodium 40 MG/0.4 ML SYRINGE SC SCH (08:28)
[2022-05-20] MEDS: FLUoxetine HCl 10 MG CAP PO SCH (08:29)
[2022-05-20] MEDS: ALPRAZolam 0.5 MG TAB PO SCH ×3 (08:29→20:45)
[2022-05-20] MEDS: Carvedilol 6.25 MG TAB PO SCH ×2 (08:29→20:47)
[2022-05-20] MEDS: Multivitamin W/ Minerals 1 TAB PO SCH (08:30)
[2022-05-20] MEDS: Amlodipine 5 MG TAB PO SCH (08:30)
[2022-05-20] MEDS: Furosemide 20 MG TAB PO SCH (08:30)
[2022-05-20] MEDS: Calcium Carbonate 600 MG + Vit D TAB PO SCH ×2 (08:30→20:48)
[2022-05-20] MEDS: Cyanocobalamin (Vitamin B-12) 1,000 MCG TAB PO SCH (08:30)
[2022-05-20] MEDS: DULoxetine 30 MG CAP PO SCH ×2 (08:30→20:45)
[2022-05-20] MEDS: Mometasone/Formoterol 60 PUFF AER INH SCH ×2 (08:32→20:48)
[2022-05-20] MEDS: CeleCOXIB 100 MG CAP PO SCH (20:45)
[2022-05-21] MEDS: Hyoscyamine Sulfate SL 0.125 mg Tablet PO SCH ×4 (00:52→17:21)
[2022-05-21] MEDS: Levothyroxine Sodium 100 MCG TAB PO SCH (05:26)
[2022-05-21] MEDS: Amlodipine 5 MG TAB PO SCH (08:09)
[2022-05-21] MEDS: DULoxetine 30 MG CAP PO SCH ×2 (08:09→20:11)
[2022-05-21] MEDS: Enoxaparin Sodium 40 MG/0.4 ML SYRINGE SC SCH (08:10)
[2022-05-21] MEDS: Carvedilol 6.25 MG TAB PO SCH ×2 (08:10→20:12)
[2022-05-21] MEDS: Furosemide 20 MG TAB PO SCH (08:10)
[2022-05-21] MEDS: ALPRAZolam 0.5 MG TAB PO SCH ×3 (08:10→20:11)
[2022-05-21] MEDS: Cyanocobalamin (Vitamin B-12) 1,000 MCG TAB PO SCH (08:10)
[2022-05-21] MEDS: Calcium Carbonate 600 MG + Vit D TAB PO SCH ×2 (08:10→20:11)
[2022-05-21] MEDS: FLUoxetine HCl 10 MG CAP PO SCH (08:10)
[2022-05-21] MEDS: Multivitamin W/ Minerals 1 TAB PO SCH (08:11)
[2022-05-21] MEDS: Mometasone/Formoterol 60 PUFF AER INH SCH ×2 (08:11→21:35)
[2022-05-21] MEDS: CeleCOXIB 100 MG CAP PO SCH (20:11)
[2022-05-21] MEDS: Acetaminophen 325 MG TAB PO PRN (20:12)
[2022-05-22] MEDS: Hyoscyamine Sulfate SL 0.125 mg Tablet PO SCH ×5 (01:57→23:43)
[2022-05-22] MEDS: Levothyroxine Sodium 100 MCG TAB PO SCH (05:46)
[2022-05-22] MEDS: Furosemide 20 MG TAB PO SCH (08:53)
[2022-05-22] MEDS: ALPRAZolam 0.5 MG TAB PO SCH ×3 (08:54→20:38)
[2022-05-22] MEDS: DULoxetine 30 MG CAP PO SCH ×2 (08:54→20:37)
[2022-05-22] MEDS: Multivitamin W/ Minerals 1 TAB PO SCH (08:55)
[2022-05-22] MEDS: Amlodipine 5 MG TAB PO SCH (08:55)
[2022-05-22] MEDS: Carvedilol 6.25 MG TAB PO SCH ×2 (08:56→20:37)
[2022-05-22] MEDS: FLUoxetine HCl 10 MG CAP PO SCH (08:56)
[2022-05-22] MEDS: Enoxaparin Sodium 40 MG/0.4 ML SYRINGE SC SCH (08:57)
[2022-05-22] MEDS: Cyanocobalamin (Vitamin B-12) 1,000 MCG TAB PO SCH (08:58)
[2022-05-22] MEDS: Calcium Carbonate 600 MG + Vit D TAB PO SCH ×2 (08:58→20:38)
[2022-05-22] MEDS: Mometasone/Formoterol 60 PUFF AER INH SCH ×2 (08:59→20:45)
[2022-05-22] MEDS: Ondansetron ODT 4 MG TAB PO PRN (09:03)
[2022-05-22] MEDS: CeleCOXIB 100 MG CAP PO SCH (20:37)
[2022-05-22] MEDS: traMADol HCl 50 MG TAB PO PRN (23:41)
[2022-05-23] MEDS: Levothyroxine Sodium 100 MCG TAB PO SCH (05:51)
[2022-05-23] MEDS: Hyoscyamine Sulfate SL 0.125 mg Tablet PO SCH ×4 (05:54→23:10)
[2022-05-23] MEDS ORDERED: Nystatin Powder 15 GM BOT TOP PRN (07:18)
[2022-05-23] MEDS: FLUoxetine HCl 10 MG CAP PO SCH (08:17)
[2022-05-23] MEDS: Carvedilol 6.25 MG TAB PO SCH ×2 (08:19→20:52)
[2022-05-23] MEDS: ALPRAZolam 0.5 MG TAB PO SCH ×3 (08:19→20:53)
[2022-05-23] MEDS: Enoxaparin Sodium 40 MG/0.4 ML SYRINGE SC SCH (08:21)
[2022-05-23] MEDS: DULoxetine 30 MG CAP PO SCH ×2 (08:22→20:50)
[2022-05-23] MEDS: Multivitamin W/ Minerals 1 TAB PO SCH (08:22)
[2022-05-23] MEDS: Amlodipine 5 MG TAB PO SCH (08:22)
[2022-05-23] MEDS: Furosemide 40 MG TAB PO SCH (08:23)
[2022-05-23] MEDS: Calcium Carbonate 600 MG + Vit D TAB PO SCH ×2 (08:23→20:50)
[2022-05-23] MEDS: Mometasone/Formoterol 60 PUFF AER INH SCH ×2 (08:24→21:09)
[2022-05-23] MEDS: Cyanocobalamin (Vitamin B-12) 1,000 MCG TAB PO SCH (08:37)
[2022-05-23] MEDS: Ondansetron ODT 4 MG TAB PO PRN (11:52)
[2022-05-23] MEDS: CeleCOXIB 100 MG CAP PO SCH (20:51)
[2022-05-24] MEDS: traMADol HCl 50 MG TAB PO PRN ×2 (00:21→22:58)
[2022-05-24] MEDS: Levothyroxine Sodium 100 MCG TAB PO SCH (05:31)
[2022-05-24] MEDS: Hyoscyamine Sulfate SL 0.125 mg Tablet PO SCH ×4 (05:31→22:59)
[2022-05-24] MEDS: FLUoxetine HCl 10 MG CAP PO SCH (08:07)
[2022-05-24] MEDS: ALPRAZolam 0.5 MG TAB PO SCH ×3 (08:07→20:25)
[2022-05-24] MEDS: Carvedilol 6.25 MG TAB PO SCH ×2 (08:07→20:25)
[2022-05-24] MEDS: Furosemide 40 MG TAB PO SCH (08:07)
[2022-05-24] MEDS: Calcium Carbonate 600 MG + Vit D TAB PO SCH ×2 (08:08→20:25)
[2022-05-24] MEDS: Cyanocobalamin (Vitamin B-12) 1,000 MCG TAB PO SCH (08:08)
[2022-05-24] MEDS: Multivitamin W/ Minerals 1 TAB PO SCH (08:08)
[2022-05-24] MEDS: Amlodipine 5 MG TAB PO SCH (08:08)
[2022-05-24] MEDS: DULoxetine 30 MG CAP PO SCH ×2 (08:08→20:26)
[2022-05-24] MEDS: Mometasone/Formoterol 60 PUFF AER INH SCH ×2 (08:09→20:28)
[2022-05-24] MEDS: Enoxaparin Sodium 40 MG/0.4 ML SYRINGE SC SCH (08:10)
[2022-05-24 10:51] VITALS: BMI 48.2
[2022-05-24] MEDS: CeleCOXIB 100 MG CAP PO SCH (20:26)
[2022-05-24] MEDS: Polyethylene Glycol 3350 17 GM Packet PO PRN (20:26)
[2022-05-25] MEDS: Hyoscyamine Sulfate SL 0.125 mg Tablet PO SCH ×4 (05:10→23:01)
[2022-05-25] MEDS: Levothyroxine Sodium 100 MCG TAB PO SCH (05:10)
[2022-05-25] MEDS: FLUoxetine HCl 10 MG CAP PO SCH (08:06)
[2022-05-25] MEDS: Amlodipine 5 MG TAB PO SCH (08:07)
[2022-05-25] MEDS: ALPRAZolam 0.5 MG TAB PO SCH ×3 (08:07→19:59)
[2022-05-25] MEDS: Calcium Carbonate 600 MG + Vit D TAB PO SCH ×2 (08:07→20:01)
[2022-05-25] MEDS: Carvedilol 6.25 MG TAB PO SCH ×2 (08:07→19:58)
[2022-05-25] MEDS: DULoxetine 30 MG CAP PO SCH ×2 (08:07→19:58)
[2022-05-25] MEDS: Enoxaparin Sodium 40 MG/0.4 ML SYRINGE SC SCH (08:08)
[2022-05-25] MEDS: Furosemide 40 MG TAB PO SCH (08:08)
[2022-05-25] MEDS: Mometasone/Formoterol 60 PUFF AER INH SCH ×2 (08:08→20:02)
[2022-05-25] MEDS: Cyanocobalamin (Vitamin B-12) 1,000 MCG TAB PO SCH (08:08)
[2022-05-25] MEDS: Multivitamin W/ Minerals 1 TAB PO SCH (08:08)
[2022-05-25] MEDS: Acetaminophen 325 MG TAB PO PRN (09:49)
[2022-05-25] MEDS: CeleCOXIB 100 MG CAP PO SCH (19:57)
[2022-05-25] MEDS: Polyethylene Glycol 3350 17 GM Packet PO PRN (20:00)
[2022-05-25] MEDS: traMADol HCl 50 MG TAB PO PRN (23:01)
[2022-05-26] MEDS: Hyoscyamine Sulfate SL 0.125 mg Tablet PO SCH ×4 (05:12→23:07)
[2022-05-26] MEDS: Levothyroxine Sodium 100 MCG TAB PO SCH (05:12)
[2022-05-26] MEDS: Enoxaparin Sodium 40 MG/0.4 ML SYRINGE SC SCH (09:54)
[2022-05-26] MEDS: ALPRAZolam 0.5 MG TAB PO SCH ×3 (09:54→19:58)
[2022-05-26] MEDS: DULoxetine 30 MG CAP PO SCH ×2 (09:55→19:59)
[2022-05-26] MEDS: Calcium Carbonate 600 MG + Vit D TAB PO SCH ×2 (09:55→19:59)
[2022-05-26] MEDS: Carvedilol 6.25 MG TAB PO SCH ×2 (09:55→19:58)
[2022-05-26] MEDS: Multivitamin W/ Minerals 1 TAB PO SCH (09:56)
[2022-05-26] MEDS: Cyanocobalamin (Vitamin B-12) 1,000 MCG TAB PO SCH (09:56)
[2022-05-26] MEDS: FLUoxetine HCl 10 MG CAP PO SCH (09:56)
[2022-05-26] MEDS: Furosemide 40 MG TAB PO SCH (09:56)
[2022-05-26] MEDS: Amlodipine 5 MG TAB PO SCH (09:56)
[2022-05-26] MEDS: Acetaminophen 325 MG TAB PO PRN (09:57)
[2022-05-26] MEDS: Mometasone/Formoterol 60 PUFF AER INH SCH ×2 (09:58→20:01)
[2022-05-26] MEDS: CeleCOXIB 100 MG CAP PO SCH (19:59)
[2022-05-27] MEDS: Hyoscyamine Sulfate SL 0.125 mg Tablet PO SCH ×3 (04:58→18:13)
[2022-05-27] MEDS: Levothyroxine Sodium 100 MCG TAB PO SCH (04:58)
[2022-05-27] MEDS: FLUoxetine HCl 10 MG CAP PO SCH (08:31)
[2022-05-27] MEDS: Carvedilol 6.25 MG TAB PO SCH ×2 (08:31→20:51)
[2022-05-27] MEDS: ALPRAZolam 0.5 MG TAB PO SCH ×3 (08:31→20:50)
[2022-05-27] MEDS: Furosemide 40 MG TAB PO SCH (08:32)
[2022-05-27] MEDS: Calcium Carbonate 600 MG + Vit D TAB PO SCH ×2 (08:32→20:50)
[2022-05-27] MEDS: Cyanocobalamin (Vitamin B-12) 1,000 MCG TAB PO SCH (08:32)
[2022-05-27] MEDS: Multivitamin W/ Minerals 1 TAB PO SCH (08:32)
[2022-05-27] MEDS: DULoxetine 30 MG CAP PO SCH ×2 (08:33→20:51)
[2022-05-27] MEDS: Enoxaparin Sodium 40 MG/0.4 ML SYRINGE SC SCH (08:33)
[2022-05-27] MEDS: Amlodipine 10 MG TAB PO SCH (08:35)
[2022-05-27] MEDS: Mometasone/Formoterol 60 PUFF AER INH SCH ×2 (08:35→20:54)
[2022-05-27] MEDS: CeleCOXIB 100 MG CAP PO SCH (20:50)
[2022-05-28] MEDS: Hyoscyamine Sulfate SL 0.125 mg Tablet PO SCH ×3 (05:51→11:47)
[2022-05-28] MEDS: Levothyroxine Sodium 100 MCG TAB PO SCH (05:51)
[2022-05-28 06:07] VITALS: TEMP 98.2
[2022-05-28] MEDS: Carvedilol 6.25 MG TAB PO SCH (09:10)
[2022-05-28] MEDS: DULoxetine 30 MG CAP PO SCH (09:11)
[2022-05-28] MEDS: Calcium Carbonate 600 MG + Vit D TAB PO SCH (09:11)
[2022-05-28] MEDS: ALPRAZolam 0.5 MG TAB PO SCH (09:11)
[2022-05-28] MEDS: Cyanocobalamin (Vitamin B-12) 1,000 MCG TAB PO SCH (09:11)
[2022-05-28] MEDS: Multivitamin W/ Minerals 1 TAB PO SCH (09:11)
[2022-05-28] MEDS: Amlodipine 10 MG TAB PO SCH (09:11)
[2022-05-28] MEDS: FLUoxetine HCl 10 MG CAP PO SCH (09:11)
[2022-05-28] MEDS: Ondansetron ODT 4 MG TAB PO PRN (09:11)
[2022-05-28] MEDS: Enoxaparin Sodium 40 MG/0.4 ML SYRINGE SC SCH (09:12)
[2022-05-28] MEDS: Furosemide 40 MG TAB PO SCH (09:12)
[2022-05-28] MEDS: Mometasone/Formoterol 60 PUFF AER INH SCH (09:12)
[2022-05-28 09:13] VITALS: BP 155/81
[2022-05-28] MEDS: Acetaminophen 325 MG TAB PO PRN (09:31)
== END 2022-05-28 13:00 | DRG 948 ==
LOC: BURMED 19:02
PROVIDERS: ADMIT Family Medicine; ATTEND Family Medicine
DX: R53.1 Weakness (principal); I50.32 Chronic diastolic (congestive) heart failure; Z20.822 Contact with and (suspected) exposure to COVID-19; I11.0 Hypertensive heart disease with heart failure; J44.9 Chronic obstructive pulmonary disease, unspecified; E03.9 Hypothyroidism, unspecified; F41.9 Anxiety disorder, unspecified; F32.A Depression, unspecified; M79.7 Fibromyalgia; K90.0 Celiac disease; R53.81 Other malaise; Z79.899 Other long term (current) drug therapy; Z79.890 Hormone replacement therapy; Z88.8 Allergy status to other drugs, medicaments and biological substances; Z88.6 Allergy status to analgesic agent; Z91.011 Allergy to milk products; Z88.0 Allergy status to penicillin
CPT/HCPCS: 36415; 36416; 71045; 72170; 82565; 85014; 85018; 85049; 94664; J1650; Q0162; U0003; U0005

== ENCOUNTER 2022-08-16 14:39 | Outpatient (CLI) | payer MEDICARE, OTHER ==
[2022-08-16 15:23] LABS: #Basophils 0.1 thou/uL (0.0-0.2); #Eosinphils 0.2 thou/uL (0.0-0.7); #Lymphocytes 1.3 thou/uL (1.20-3.40); #Monocytes 1.3 thou/uL (0.11-0.59); #Neutrophils 12.6 thou/uL (1.40-6.50); %Basophils 0.9 % (0.0-1.0); %Eosinophils 1.1 % (0.0-10.0); %Lymphocytes 8.3 % (21.0-51.0); %Monocytes 8.1 % (0.0-10.0); %Neutrophils 81.6 % (42.0-75.0); Hemoglobin 12.8 g/dL (12.0-16.0); Mean Corpuscular HGB CONC 32.3 g/dL (32.0-36.0); Mean Corpuscular Hemoglobin 29.4 pg (27.0-31.0); Mean Corpuscular Volume 91.1 fl (78.0-98.0); Mean Platelet Volume 9.7 fL (7.4-10.4); Platelet Count 332 10x3/uL (130-400); RBC Distribution Width 12.4 % (11.5-14.5); Red Blood Cell (RBC) Count 4.34 mill/uL (4.20-5.40); White Blood Cell (WBC) Count 15.5 10x3/uL (4.8-10.8)
[2022-08-18 19:09] LABS: EliA Celiac New Method **** NEW METHOD ****; t-Transglutaminase (tTG) IgA 2.2 EliAU/mL (<7 Negative)
== END 2022-08-16 14:40 | disposition home or self-care (01) ==
LOC: BURMANOR 14:39
PROVIDERS: ATTEND Registered Nurse Community Health
DX: R90.0 Intracranial space-occupying lesion found on diagnostic imaging of central nervous system (principal)
CPT/HCPCS: 83516; 83880; 85025; 85379

== ENCOUNTER 2023-06-07 04:12 | Observation (INO) | payer MEDICARE, MEDICAID ==
[2023-06-07] MEDS ORDERED: Ipratropium/Albuterol 3 ML NEB ONE (05:05)
[2023-06-07 05:44] LABS: Bilirubin Negative (Negative); Blood, Urine Trace (Negative); Clarity Clear (Clear); Glucose, Urine (Dipstick) Negative (Negative); Ketone, Urine Negative (Negative); Leukocyte Moderate (Negative); Nitrite Positive (Negative); Protein, Urine (Dipstick) Negative (Neg-Trace); Urobilinogen 0.2 mg/dL (Less than 2)
[2023-06-07 05:51] LABS: #Basophils 0.1 thou/uL (0.0-0.2); #Eosinphils 0.2 thou/uL (0.0-0.7); #Lymphocytes 2.9 thou/uL (1.20-3.40); #Monocytes 0.9 thou/uL (0.11-0.59); #Neutrophils 6.1 thou/uL (1.40-6.50); %Basophils 1.3 % (0.0-1.0); %Eosinophils 1.7 % (0.0-10.0); %Lymphocytes 28.4 % (21.0-51.0); %Monocytes 8.6 % (0.0-10.0); ALT (SGPT) 21 U/L (8-55); AST (SGOT) 17 U/L (5-34); Albumin 3.3 g/dL (3.4-4.8); Alkaline Phosphatase 123 U/L (40-110); Anion Gap 16 mmol/L (10-20); BUN (Urea Nitrogen) 17 mg/dL (9.8-20.1); Bilirubin, Total 0.7 mg/dL (0.2-1.2); CK (CPK) 22 U/L (29-168); Calc. Creatinine Clearance 0 mL/min (70-130); Calcium 9.7 mg/dL (7.8-10.44); Carbon Dioxide 27 mmol/L (23-31); Chloride 100 mmol/L (98-107); Estimated GFR 47; Globulin 3.6 g/dL (2.4-3.5); Glucose 122 mg/dL (83-110); Hematocrit 40.1 % (36.0-47.0); Hemoglobin 12.3 g/dL (12.0-16.0); Magnesium 1.6 mg/dL (1.6-2.6); Mean Corpuscular HGB CONC 30.8 g/dL (32.0-36.0); Mean Corpuscular Hemoglobin 27.4 pg (27.0-31.0); Mean Corpuscular Volume 88.9 fl (78.0-98.0); Mean Platelet Volume 9.1 fL (7.4-10.4); Platelet Count 353 10x3/uL (130-400); Protein, Total 6.9 g/dL (5.8-8.1); RBC Distribution Width 13.9 % (11.5-14.5); Red Blood Cell (RBC) Count 4.51 mill/uL (4.20-5.40); White Blood Cell (WBC) Count 10.1 10x3/uL (4.8-10.8)
[2023-06-07 05:55] LABS: Bacteria/HPF 2+ HPF (None Seen); CAUTI Indications for Culture Alt mental st,lethar; RBC/HPF 0-3 HPF (0-3); Squamous Epithelial 0-3 HPF (0-3); WBC/HPF Greater Than 50 HPF (0-3)
[2023-06-07 05:57] LABS: Urine Culture Reflex Yes Yes
[2023-06-07 06:24] LABS: Potassium 3.4 mmol/L (3.5-5.1); Sodium 139 mmol/L (136-145)
[2023-06-07] MEDS ORDERED: LevoFLOXacin 500 mg/D5W 100 ML BAG ONE (06:36)
[2023-06-07] MEDS ORDERED: Lorazepam 0.5 MG TAB PO PRN (08:32)
[2023-06-07] MEDS ORDERED: Ipratropium/Albuterol 3 ML NEB IPPB PRN (08:32)
[2023-06-07] MEDS ORDERED: Bisacodyl 10 MG SUPP PR PRN ×2 (08:32→09:31)
[2023-06-07] MEDS ORDERED: Non-Formulary Item 1 EACH (Albuterol Sulfate [Albuterol Sulfate Neb] 0.63 MG/3 ML Vial.Ne NEB PRN (08:32)
[2023-06-07] MEDS ORDERED: GUAIFENESIN SF SOLN 200 MG/10 ML UDCUP PO PRN (08:32)
[2023-06-07] MEDS ORDERED: Acetaminophen 325 MG TAB PO PRN (08:45)
[2023-06-07] MEDS ORDERED: Ondansetron ODT 4 MG TAB SL PRN (08:45)
[2023-06-07] MEDS ORDERED: Ondansetron PF 4 MG/2 ML Vial IVP PRN (08:45)
[2023-06-07] MEDS ORDERED: Nystatin Powder 15 GM BOT TOP PRN (09:04)
[2023-06-07] MEDS ORDERED: Polyethylene Glycol 3350 17 GM Packet PO PRN (09:31)
[2023-06-07] MEDS ORDERED: Levothyroxine Sodium 25 MCG TAB PO SCH (10:00)
[2023-06-07] MEDS ORDERED: predniSONE 5 MG TAB PO SCH (10:00)
[2023-06-07] MEDS ORDERED: Levothyroxine Sodium 100 MCG TAB PO SCH (10:00)
[2023-06-07] MEDS ORDERED: Sodium Chloride 0.9% 1,000 ML IV SCH (11:45)
[2023-06-07] MEDS: Calcium Carbonate 600 MG + Vit D TAB PO SCH ×2 (13:07→16:52)
[2023-06-07] MEDS: buPROPion 75 MG TAB PO SCH ×2 (13:07→20:17)
[2023-06-07] MEDS: Amlodipine 5 MG TAB PO SCH ×2 (13:07→20:17)
[2023-06-07] MEDS: Gabapentin 300 MG CAP PO SCH ×2 (13:08→20:18)
[2023-06-07] MEDS: Furosemide 40 MG TAB PO SCH (13:08)
[2023-06-07] MEDS: Cyanocobalamin (Vitamin B-12) 1,000 MCG TAB PO SCH ×2 (13:08→16:52)
[2023-06-07] MEDS: Carvedilol 25 MG TAB PO SCH ×2 (13:08→20:17)
[2023-06-07 18:35] VITALS: BMI 37.5
[2023-06-07] MEDS: DULoxetine 30 MG CAP PO SCH (20:17)
[2023-06-08] MEDS: LevoFLOXacin 500 mg/D5W 500 MG in Premix Bag 1 BAG IVPB SCH (05:02)
[2023-06-08] MEDS: Levothyroxine Sodium 100 MCG TAB PO SCH (05:02)
[2023-06-08] MEDS: Levothyroxine Sodium 25 MCG TAB PO SCH (05:03)
[2023-06-08] MEDS: predniSONE 5 MG TAB PO SCH (08:57)
[2023-06-08] MEDS: Calcium Carbonate 600 MG + Vit D TAB PO SCH (08:57)
[2023-06-08] MEDS: buPROPion 75 MG TAB PO SCH ×2 (08:57→20:38)
[2023-06-08] MEDS: Cyanocobalamin (Vitamin B-12) 1,000 MCG TAB PO SCH (08:58)
[2023-06-08] MEDS: Gabapentin 300 MG CAP PO SCH ×2 (08:58→20:40)
[2023-06-08] MEDS: Amlodipine 5 MG TAB PO SCH ×2 (08:59→20:39)
[2023-06-08] MEDS: Carvedilol 25 MG TAB PO SCH ×2 (09:00→20:39)
[2023-06-08] MEDS: Acetaminophen 500 MG TAB PO PRN (17:52)
[2023-06-08] MEDS: DULoxetine 30 MG CAP PO SCH (20:39)
[2023-06-09] MEDS: Levothyroxine Sodium 100 MCG TAB PO SCH (05:56)
[2023-06-09] MEDS: LevoFLOXacin 500 mg/D5W 500 MG in Premix Bag 1 BAG IVPB SCH (05:56)
[2023-06-09] MEDS: Levothyroxine Sodium 25 MCG TAB PO SCH (05:57)
[2023-06-09] MEDS ORDERED: Gentamicin Sulfate 100 MG in Premix Bag 1 BAG IVPB SCH (08:00)
[2023-06-09] MEDS ORDERED: Nitrofurantoin Monohyd/M-Cryst 100 MG CAP PO SCH (09:00)
[2023-06-09] MEDS: buPROPion 75 MG TAB PO SCH (09:17)
[2023-06-09] MEDS: Furosemide 40 MG TAB PO SCH (09:18)
[2023-06-09] MEDS: predniSONE 5 MG TAB PO SCH (09:18)
[2023-06-09] MEDS: Carvedilol 25 MG TAB PO SCH (09:18)
[2023-06-09] MEDS: Amlodipine 5 MG TAB PO SCH (09:18)
[2023-06-09] MEDS: Calcium Carbonate 600 MG + Vit D TAB PO SCH (09:18)
[2023-06-09] MEDS: Gabapentin 300 MG CAP PO SCH (09:19)
[2023-06-09] MEDS: Cyanocobalamin (Vitamin B-12) 1,000 MCG TAB PO SCH (09:21)
[2023-06-09] MEDS: Acetaminophen 500 MG TAB PO PRN (12:39)
[2023-06-09 13:21] VITALS: BP 121/77
[2023-06-09 13:44] VITALS: TEMP 99.1
== END 2023-06-09 14:25 ==
LOC: BURERS 04:12 → BURMED 06:50
PROVIDERS: ADMIT Family Medicine; ATTEND Family Medicine
DX: N39.0 Urinary tract infection, site not specified (principal); R41.82 Altered mental status, unspecified; E86.0 Dehydration; J44.9 Chronic obstructive pulmonary disease, unspecified; I13.0 Hypertensive heart and chronic kidney disease with heart failure and stage 1 through stage 4 chronic kidney disease, or unspecified chronic kidney disease; I50.32 Chronic diastolic (congestive) heart failure; N18.30 Chronic kidney disease, stage 3 unspecified; K90.0 Celiac disease; E03.9 Hypothyroidism, unspecified; F41.8 Other specified anxiety disorders; F03.90 Unspecified dementia, unspecified severity, without behavioral disturbance, psychotic disturbance, mood disturbance, and anxiety; Z90.49 Acquired absence of other specified parts of digestive tract; Z90.89 Acquired absence of other organs; Z88.2 Allergy status to sulfonamides; Z88.5 Allergy status to narcotic agent; Z88.0 Allergy status to penicillin; Z88.8 Allergy status to other drugs, medicaments and biological substances; Z91.018 Allergy to other foods; Z91.011 Allergy to milk products; Z79.890 Hormone replacement therapy; Z79.899 Other long term (current) drug therapy
CPT/HCPCS: 70450; 71045; 80053; 81001; 82550; 82962; 83605; 83735; 83880; 84484; 85025; 87077; 87086; 87186; 93005; 94760; 96372 ×2; 96376 ×2; 97110 ×2; 97530 ×2; 97535 ×2; G0378 ×3; 36415; 36416; J1650; J1956; J7050; J7512; J7620

== ENCOUNTER 2023-10-17 04:45 | Emergency (ER) | payer MEDICARE, MEDICAID ==
[2023-10-17 05:24] LABS: #Basophils 0.1 thou/uL (0.0-0.2); #Eosinphils 0.2 thou/uL (0.0-0.7); #Lymphocytes 2.9 thou/uL (1.20-3.40); #Monocytes 1.2 thou/uL (0.11-0.59); #Neutrophils 10.7 thou/uL (1.40-6.50); %Lymphocytes 18.9 % (21.0-51.0); %Monocytes 8.1 % (0.0-10.0); Hematocrit 42.3 % (36.0-47.0); Hemoglobin 13.6 g/dL (12.0-16.0); Mean Corpuscular HGB CONC 32.1 g/dL (32.0-36.0); Mean Corpuscular Hemoglobin 27.5 pg (27.0-31.0); Mean Corpuscular Volume 85.5 fl (78.0-98.0); Mean Platelet Volume 9.7 fL (7.4-10.4); Platelet Count 346 10x3/uL (130-400); RBC Distribution Width 13.1 % (11.5-14.5); Red Blood Cell (RBC) Count 4.95 mill/uL (4.20-5.40); White Blood Cell (WBC) Count 15.1 10x3/uL (4.8-10.8)
[2023-10-17] MEDS ORDERED: cefTRIAXone (ROCEPHIN) 1 GM VIAL ONE (05:29)
[2023-10-17 06:04] LABS: ALT (SGPT) 23 U/L (8-55); AST (SGOT) 27 U/L (5-34); Albumin 3.3 g/dL (3.4-4.8); Alkaline Phosphatase 77 U/L (40-110); Anion Gap 18 mmol/L (10-20); BUN (Urea Nitrogen) 22 mg/dL (9.8-20.1); Bilirubin, Total 0.6 mg/dL (0.2-1.2); Calc. Creatinine Clearance 0 mL/min (70-130); Calcium 10.2 mg/dL (7.8-10.44); Carbon Dioxide 26 mmol/L (23-31); Chloride 99 mmol/L (98-107); Estimated GFR 39; Globulin 4.6 g/dL (2.4-3.5); Glucose 82 mg/dL (83-110); Potassium 4.6 mmol/L (3.5-5.1); Protein, Total 7.9 g/dL (5.8-8.1); Sodium 138 mmol/L (136-145)
== END 2023-10-17 06:45 ==
LOC: BURERS 04:45
DX: N39.0 Urinary tract infection, site not specified (principal); J44.9 Chronic obstructive pulmonary disease, unspecified; I13.0 Hypertensive heart and chronic kidney disease with heart failure and stage 1 through stage 4 chronic kidney disease, or unspecified chronic kidney disease; N18.30 Chronic kidney disease, stage 3 unspecified; I50.9 Heart failure, unspecified; Z87.891 Personal history of nicotine dependence; Z79.899 Other long term (current) drug therapy
CPT/HCPCS: 80053; 85025; 96365; J0696